=== PATIENT | female | born 1945 | race African-American/Black ===

== ENCOUNTER 2018-02-23 11:39 | Inpatient (IN) | payer MEDICARE ==
[~2018-02-23] VITALS: Ht 160 cm; Wt 101.6 kg
[2018-02-23] MEDS ORDERED: LIPITOR 40MG TA40 MG PO (18:41)
[2018-02-23] MEDS ORDERED: GLUCOPHAGE500 MG/TAB PO (18:42)
[2018-02-23] MEDS ORDERED: PRINIVIL20 MG PO (18:42)
[2018-02-23] MEDS ORDERED: ACTOS 15MG TAB15 MG PO (18:43)
[2018-02-23] MEDS ORDERED: FERROUS SU325 MG/TAB PO (18:43)
[2018-02-23 18:45] VITALS: BP 112/55; PULSE 81
[2018-02-23 19:47] VITALS: BP 102/59; PULSE 79; TEMP 98.4
[2018-02-23 21:48] VITALS: BP 166/72; PULSE 75
[2018-02-24] VITALS (20 sets, daily range): BP systolic 85–138; BP diastolic 29–72; PULSE 57–82; TEMP 97.9–98.4
[2018-02-24 04:29] LABS: BASO % 0.4 % (0.0-2.0); EOS # 0.2 (0.0-0.7); EOS % 2.1 % (0-4.0); GRAN # 4.1 (1.4-6.5); HEMOGLOBIN 11.1 g/dl (12.5-16.0); LYMPH # 3.1 (1.2-3.4); LYMPH % 39.3 % (20.0-51.0); MEAN CELL VOLUME 92 fl (80.0-100.0); MEAN CORPUSCULAR HEMOGLOBIN 30 pg (27.0-31.0); MEAN CORPUSCULAR HGB CONC 33 g/dl (33.0-37.0); MEAN PLATELET VOLUME 10.2 fl (7.4-10.4); MONO # 0.6 (0.1-0.6); MONO % 6.9 % (1.7-9.3); PLATELET COUNT 197 K/mm3 (130-400); RED BLOOD COUNT 3.71 M/mm3 (4.10-5.30); REDCELL DISTRIBUTION WIDTH-CV 14.9 % (11.5-14.5)
[2018-02-24 04:39] LABS: CALCIUM 8.8 mg/dL (8.4-10.2); CREATININE, serum 1.31 mg/dL (0.52-1.25); POTASSIUM 4.1 mmol/L (3.4-5.0)
[2018-02-24 04:59] LABS: TROPONIN-I 6 HR POST INITIAL 0.058 ng/mL (0.000-0.034)
[2018-02-25] VITALS (8 sets, daily range): BP systolic 102–128; BP diastolic 52–65; PULSE 55–87; TEMP 98–98.9
[2018-02-26 04:14] VITALS: BP 128/59; PULSE 71; TEMP 98.5
[2018-02-26 08:59] VITALS: BP 119/61; PULSE 73; TEMP 98.4
[2018-02-26 11:21] VITALS: BP 121/71; PULSE 67; TEMP 98.7
[2018-02-26] MEDS ORDERED: BRILINTA90 MG PO (13:49)
[2018-02-26] MEDS ORDERED: COREG 6.256.25 MG/TA PO (13:49)
[2018-02-26] MEDS ORDERED: NITROSTAT0.4 MG/TAB SL (13:50)
[2018-02-26] MEDS ORDERED: ASPIRIN E.C. 8181 MG PO (13:50)
== END 2018-02-26 15:54 | disposition home or self-care (01) | DRG 247 ==
LOC: MEDICAL 18:37
PROVIDERS: Nurse Practitioner
PROC: 027034Z Dilation of Coronary Artery, One Artery with Drug-eluting Intraluminal Device, Percutaneous Approach (ICD-10-PCS; principal; 2018-02-24)
PROC: B2111ZZ Fluoroscopy of Multiple Coronary Arteries using Low Osmolar Contrast (ICD-10-PCS; 2018-02-24)
PROC: 4A023N7 Measurement of Cardiac Sampling and Pressure, Left Heart, Percutaneous Approach (ICD-10-PCS; 2018-02-24)
PROC: B2151ZZ Fluoroscopy of Left Heart using Low Osmolar Contrast (ICD-10-PCS; 2018-02-24)
DX: I21.4 Non-ST elevation (NSTEMI) myocardial infarction (principal); I10 Essential (primary) hypertension; E11.9 Type 2 diabetes mellitus without complications; E78.5 Hyperlipidemia, unspecified; I25.10 Atherosclerotic heart disease of native coronary artery without angina pectoris
CPT/HCPCS: 99222-AI; 99232-AI; 99239; C1725; C1769; C1874; C1887; C9600; G0378; J1644; J1650; J2250; J3010; J7030

== ENCOUNTER → 2020-05-20 | Emergency (ER) | payer MEDICARE ==
[~2020-05-20] VITALS: Ht 160 cm; Wt 97.7 kg
[~2020-05-20] MED LIST: ACTOS 15MG TAB15 MG PO; ASPIRIN E.C. 8181 MG PO; BRILINTA90 MG PO; COREG 6.256.25 MG/TA PO; FERROUS SU325 MG/TAB PO; GLUCOPHAGE500 MG/TAB PO; LIPITOR 40MG TA40 MG PO; NITROSTAT0.4 MG/TAB SL; PRINIVIL20 MG PO
[2020-05-20 22:57] VITALS: BP 168/81; PULSE 84; TEMP 98.3
== END ==
LOC: COL.ER 10:34
DX: M79.89 Other specified soft tissue disorders (principal); Z79.82 Long term (current) use of aspirin; Z79.84 Long term (current) use of oral hypoglycemic drugs